=== PATIENT | male | born 1995 | race African-American/Black ===

== ENCOUNTER 2017-09-08 08:47 | Emergency (ER) | payer MEDICAID, OTHER ==
[~2017-09-08] VITALS: Ht 190.5 cm; Wt 95.5 kg
[2017-09-08 11:43] LABS: INFLUENZA TYPE A NEGATIVE FOR TYPE A (NEGATIVE); INFLUENZA TYPE B NEGATIVE FOR TYPE B (NEGATIVE)
[2017-09-08 12:12] VITALS: BP 128/81
== END 2017-09-08 12:12 | disposition home or self-care (01) ==
LOC: EMS 08:48
DX: J06.9 Acute upper respiratory infection, unspecified (principal); M79.1 Myalgia
CPT/HCPCS: 87804; 99284

== ENCOUNTER 2018-07-14 01:27 | Emergency (ER) | payer OTHER ==
[~2018-07-14] VITALS: Ht 188 cm; Wt 92.3 kg
[2018-07-14 01:31] VITALS: BP 144/82
[2018-07-14] MEDS ORDERED: ADDE10 PO (01:39)
[2018-07-14] MEDS ORDERED: EMTR1TAB15 PO (01:39)
== END 2018-07-14 02:45 | disposition left against medical advice (07) ==
LOC: EMS 01:28
DX: R21 Rash and other nonspecific skin eruption (principal); Z53.21 Procedure and treatment not carried out due to patient leaving prior to being seen by health care provider

== ENCOUNTER 2022-03-24 17:51 | Emergency (ER) | payer MEDICAID, OTHER ==
[~2022-03-24] VITALS: Ht 188 cm; Wt 97.7 kg
[~2022-03-24 17:51] MED LIST: ADDE10 PO; EMTR1TAB15 PO
[2022-03-24 18:42] LABS: COVID AG,FIA SOURCE NASAL SWAB
[2022-03-24 18:58] LABS: RAPID GROUP A STREP NEGATIVE (NEGATIVE)
[2022-03-24 19:01] LABS: INFLUENZA TYPE A NEGATIVE FOR TYPE A (NEGATIVE); INFLUENZA TYPE B NEGATIVE FOR TYPE B (NEGATIVE)
[2022-03-24 19:45] VITALS: BP 129/63
== END 2022-03-24 21:23 | disposition left against medical advice (07) ==
LOC: EMS 17:54
DX: Z53.21 Procedure and treatment not carried out due to patient leaving prior to being seen by health care provider (principal); Z20.822 Contact with and (suspected) exposure to COVID-19
CPT/HCPCS: 87430; 87804; 99283